=== PATIENT | female | born 1965 | race Caucasian/White ===

== ENCOUNTER 2016-08-25 05:23 | Emergency (ER) | payer OTHER ==
[~2016-08-25] VITALS: Ht 162.6 cm; Wt 92.0 kg
[~2016-08-25 05:23] MED LIST: AMLO5TAB22 PO; COUM10TA PO; COZA100T PO; GLUCTAB PO; IBUP800 PO; LORTA5 PO
[2016-08-25 05:32] VITALS: BP 192/111; PULSE 76; RESP 15; TEMP 98.2; O2SAT 97
[2016-08-25] MEDS ORDERED: DOXY100C PO (06:10)
[2016-08-25] MEDS ORDERED: AMLO5TAB2 PO (06:10)
[2016-08-25] MEDS ORDERED: METF1000 PO (06:10)
[2016-08-25] MEDS ORDERED: LOSA100T PO (06:10)
[2016-08-25] MEDS ORDERED: OXYB5TAB10 PO (06:11)
[2016-08-25] MEDS ORDERED: TRAM50TA PO (06:33)
[2016-08-25] MEDS ORDERED: CLIN1CAP6 PO (06:33)
[2016-08-25] MEDS ORDERED: NAPR500T PO (06:33)
--- NOTE | 2016-08-25 06:34 | PD ---
HPI Chief Complaint: GI Complaint Time Seen by Provider: 06:15 Travel History International Travel<30 days: No Contact w/Intl Traveler<30days: No Traveled to known affect area: No History of Present Illness HPI This is a 51-year-old female who presents to the emergency department having woken up in the middle the night with right sided facial pain predominantly on her upper jaw, radiating to her neck, constant, moderate severity associated with swelling in her face. She denies any fevers or chills. She says for the past several days she's been sick with cough and congestion. Her grandson is sick with bronchitis as well. She went to [facility] and received a prescription for doxycycline which she's been taking but she doesn't feel any better. She also vomited this evening when she woke up. PFSH Past Medical History Asthma: Yes Blood Disorders: No Anxiety: Yes Depression: No Heart Rhythm Problems: No Cancer: No Cardiovascular Problems: Yes (HTN) High Cholesterol: No Chemotherapy: No Chest Pain: No COPD: No Cerebrovascular Accident: Yes (10YRS AGO) Diabetes: Yes Patient Takes Glucophage: Yes Diminished Hearing: No Endocrine: Yes Gastrointestinal Disorders: Yes (nausea) Genitourinary: No Headaches: Yes Hepatitis: No Hiatal Hernia: No Hypertension: Yes Immune Disorder: Yes (fibromyalgia) Musculoskeletal: Yes (neck diskectomy) Neurologic: No Psychiatric: No Reproductive: Yes Respiratory: Yes (ASTHMA) Immunizations Current: Yes Radiation Therapy: No Sleep Apnea: No Thyroid Disease: Yes (goiter) ?: Not LMP: a long while Past Surgical History AICD: No Section: Yes (X2) Gynecologic Surgery: Yes (x1 tubal vaginal delivery) Hysterectomy: Yes Joint Replacement: No Oral Surgery: Yes (t and a) Pacemaker: No Tonsillectomy: Yes Other Surgery: Yes (t&a, ;neck, foot) Social History Alcohol Use: No Tobacco Use: No (never) Substance Use: No Allergies-Medications (Allergen,Severity, Reaction): Coded Allergies: Clonidine (Verified Allergy, Severe, CONFUSION, COULDN'T FUNCTION, 08/25/16 ) Morphine (Verified Allergy, Severe, VOMITING, 08/25/16) Penicillin (Verified Allergy, Severe, Rash, 08/25/16) rash Reported Meds & Prescriptions Reported Meds & Active Scripts Active Reported Ditropan (Oxybutynin Chloride) 5 Mg Tab 5 Mg PO Q12HR Doxycycline Hyclate 100 Mg Cap 100 Mg PO BID Amlodipine (Amlodipine Besylate) 5 Mg Tab 5 Mg PO DAILY Metformin (Metformin HCl) 1,000 Mg Tab 1,000 Mg PO BIDPC With meals Losartan (Losartan Potassium) 100 Mg Tab 100 Mg PO DAILY Review of Systems Except as stated in HPI: all other systems reviewed are Neg Physical Exam Narrative GENERAL:Well appearing, no acute distress SKIN: Warm and dry. HEAD: Atraumatic. Normocephalic. EYES: Pupils equal and round. No injection or drainage. ENT: Moist mucous membranes. Dental carry evident in a right premolar with adjacent swelling of the gums, tender to palpation with facial swelling over the right maxilla. No submental tenderness or fullness. NECK: Trachea midline. CARDIOVASCULAR: Regular rate and rhythm. No murmur appreciated. RESPIRATORY: Clear to auscultation. Breath sounds equal bilaterally. GASTROINTESTINAL: Abdomen soft, non-tender, nondistended. MUSCULOSKELETAL: No obvious deformities. NEUROLOGICAL: Awake and alert. No obvious cranial nerve deficits. Moving all extremities. PSYCHIATRIC: Appropriate mood and affect; insight and judgment normal. Data Data Last Documented VS Vital Signs Date Time Temp Pulse Resp B/P Pulse Ox O2 Delivery O2 Flow Rate FiO2 08/25/16 05:32 98.2 76 15 192/111 97 Room Air MDM Medical Decision Making Medical Screen Exam Complete: Yes Emergency Medical Condition: Yes Interpretation(s) Afebrile, no tachycardia, hypertensive Differential Diagnosis Dental abscess, sinusitis, Tony angina Narrative Course This is a 51-year-old female who presents to the emergency department with dental pain that started this morning when she woke up. She has evidence of some fullness over the right maxilla and region where I suspect there is an underlying dental abscess. Patient was advised that she needs to follow-up with a dentist. She is nontoxic appearing and has no signs of Tony angina. She will be discharged on antibiotics and pain control. Diagnosis Primary Impression: Dental abscess Patient Instructions: General Instructions Additional Instructions: If you develop fever, chills or severe pain or swelling under your chin or jaw return to the emergency room. Follow-up with a dentist as soon as possible. Med/Other Pt SpecificInfo: Prescription(s) given Scripts Tramadol 50 Mg Tab50 Mg PO Q6H PRN (PAIN) #10 TAB Prov:Aleyda Arevalo MD 08/25/16 Naproxen 500 Mg [id number] Mg PO BID PRN (PAIN SCALE 4 TO 10) #20 TAB Prov:Aleyda Arevalo MD 08/25/16 Clindamycin 300 Mg [id number] Mg PO TID #21 CAP Prov:Aleyda Arevalo MD 08/25/16 Disposition: 01 DISCHARGE HOME Condition: Stable Aleyda Arevalo MD Aug 25, 2016 06:33
[2016-08-25] MEDS ORDERED: KETOROLAC TROMETHAMINE 60 MG/2 ML (IM) VIAL IM ONE (06:45)
[2016-08-25] MEDS ORDERED: ONDANSETRON ODT 4 MG TAB PO ONE (06:45)
== END 2016-08-25 07:37 | disposition home or self-care (01) ==
LOC: NEPC 05:23
DX: K04.7 Periapical abscess without sinus (principal)
CPT/HCPCS: 96372; 99283; J1885